=== PATIENT | male | born 1985 | race Caucasian/White ===

== ENCOUNTER 2017-05-17 05:21 | Day surgery (SDC) | payer BC ==
[2017-05-13 09:43] VITALS: BP 130/85
[~2017-05-17] VITALS: Ht 190.5 cm; Wt 125.7 kg
[~2017-05-17 05:21] MED LIST: NONE PER PT
[2017-05-17] MEDS ORDERED: LACTATED RINGERS 1,000 ML IV SCH (06:07)
[2017-05-17 06:08] VITALS: BP 130/85
[2017-05-17] MEDS ORDERED: BUPIVACAINE/PF 0.5% ONE (06:20)
[2017-05-17] MEDS ORDERED: EPINEPHRINE 1 MG/ML, 1ML ONE (06:20)
[2017-05-17] MEDS ORDERED: LIDOCAINE 1%, 2ML SQ PRN (06:30)
[2017-05-17] MEDS ORDERED: MIDAZOLAM 1 MG/ML, 2ML ONE (06:47)
[2017-05-17] MEDS ORDERED: FENTANYL PF 100 MCG/2ML ONE (06:47)
[2017-05-17] MEDS ORDERED: METOCLOPRAMIDE 5 MG/ML, 2ML IV PRN (07:00)
[2017-05-17] MEDS ORDERED: EPHEDRINE 50 MG/ML, 1ML IVPush PRN (07:00)
[2017-05-17] MEDS ORDERED: PROMETHAZINE 25 MG/ML, 1ML IV PRN (07:00)
[2017-05-17] MEDS ORDERED: HYDROcodone/APAP 7.5-325MG/15ML UDC PO PRN (07:00)
[2017-05-17] MEDS ORDERED: KETOROLAC 30 MG/1 ML IV PRN (07:00)
[2017-05-17] MEDS ORDERED: HYDROmorphone 1 MG/ML, 1ML IV PRN (07:00)
[2017-05-17] MEDS ORDERED: METOPROLOL 1 MG/ML, 5ML IV PRN (07:00)
[2017-05-17] MEDS ORDERED: ACETAMINOPHEN 325 MG TABLET PO PRN (07:00)
[2017-05-17] MEDS ORDERED: FENTANYL PF 100 MCG/2ML IV PRN (07:00)
[2017-05-17] MEDS ORDERED: ONDANSETRON 2MG/ML, 2ML IVPush PRN (07:00)
[2017-05-17] MEDS ORDERED: ALBUTEROL SULFATE 2.5 MG/3 ML NPPB PRN (07:00)
[2017-05-17] MEDS ORDERED: KETOROLAC 30 MG/1 ML ONE (07:59)
[2017-05-17] MEDS ORDERED: HYDROcodone/APAP 7.5-325MG/15ML UDC ONE (07:59)
[2017-05-17] MEDS ORDERED: CEFAZOLIN 1,000 MG ONE (16:44)
[2017-05-17] MEDS ORDERED: DEXAMETHASONE 4 MG/ML, 1ML ONE (16:44)
[2017-05-17] MEDS ORDERED: ONDANSETRON 2MG/ML, 2ML ONE (16:44)
[2017-05-17] MEDS ORDERED: SUCCINYLCHOLINE 20 MG/ML, 10ML ONE (16:44)
[2017-05-17] MEDS ORDERED: PROPOFOL 10 MG/ML, 20ML ONE (16:44)
== END 2017-05-17 09:05 ==
LOC: OUT 05:21
PROVIDERS: ATTEND Orthopaedic Surgery
DX: Z47.2 Encounter for removal of internal fixation device (principal)
CPT/HCPCS: 20680; 73100; 76000; J0171; J0330; J0690; J1100; J2250; J2405; J2704; J3010; J3490; J7120